=== PATIENT | male | born 1975 | race Caucasian/White ===

== ENCOUNTER 2024-05-18 22:51 | Emergency (ER) | payer SELFPAY ==
[~2024-05-18] VITALS: Ht 170.2 cm; Wt 68.0 kg
[2024-05-18 23:02] VITALS: BP 137/94; PULSE 70; RESP 16; TEMP 97.8; O2SAT 98
== END 2024-05-19 04:05 | disposition left against medical advice (07) ==
LOC: ER 22:51
DX: F99 Mental disorder, not otherwise specified (principal)
CPT/HCPCS: 99283